=== PATIENT | female | born 1965 | race Caucasian/White ===

== ENCOUNTER → 2016-05-19 | Outpatient (CLI) | payer OTHER | LOC: US 09:30 | DX: R10.0 Acute abdomen (principal); R10.2 Pelvic and perineal pain; R16.0 Hepatomegaly, not elsewhere classified; K80.20 Calculus of gallbladder without cholecystitis without obstruction | CPT/HCPCS: 76700 ==

== ENCOUNTER → 2016-05-25 | Outpatient (CLI) | payer OTHER | LOC: KOH-I 08:25 | DX: R10.2 Pelvic and perineal pain (principal); R10.0 Acute abdomen; D25.9 Leiomyoma of uterus, unspecified; D26.1 Other benign neoplasm of corpus uteri | CPT/HCPCS: 76830; 76856 ==

== ENCOUNTER → 2016-06-06 | Outpatient (CLI) | payer OTHER | LOC: KOH-I 08:51 | DX: K76.89 Other specified diseases of liver (principal); D18.03 Hemangioma of intra-abdominal structures | CPT/HCPCS: 74183; A9577 ==